=== PATIENT | male | born 1985 | race Caucasian/White ===

== ENCOUNTER 2021-09-03 08:20 | Emergency (ER) | payer MEDICAID, SELFPAY ==
[~2021-09-03] VITALS: Ht 172.7 cm; Wt 85.7 kg
[2021-09-03 08:37] VITALS: BP_SYST 173
[2021-09-03] MEDS ORDERED: NALOXONE HCL 2 MG/2 ML SYR IVP ONE (08:45)
[2021-09-03 09:05] LABS: BASOPHILS # (AUTO) 0.1 K/uL (0.0-0.2); EOSINOPHILS # (AUTO) 0.2 K/uL (0.0-0.4); EOSINOPHILS % (AUTO) 2.1 % (0.0-4.0); HEMATOCRIT 40.5 % (36-54); HEMOGLOBIN 14.1 g/dL (14.0-18.0); LYMPHOCYTES # (AUTO) 2.1 K/uL (1.0-5.5); LYMPHOCYTES % (AUTO) 24.3 % (20.5-51.5); MEAN CORPUSCULAR HEMOGLOBIN 31 pg (27-31); MEAN CORPUSCULAR HGB CONC 35 % (32-36); MEAN CORPUSCULAR VOLUME 88 fL (79.0-98.0); MONOCYTES # (AUTO) 0.8 K/uL (0.0-1.0); MONOCYTES % (AUTO) 9.4 % (1.7-9.3); NEUTROPHILS # (AUTO) 5.4 K/uL (1.8-7.7); NEUTROPHILS % (AUTO) 63.2 % (40.0-70.0); PLATELET COUNT (AUTO) 218 K/uL (130-430); WHITE BLOOD COUNT (AUTO) 8.6 K/uL (4.8-10.8)
[2021-09-03] MEDS ORDERED: ONDANSETRON HCL 4 MG/2 ML VIAL IVP ONE ×2 (09:15→10:45)
[2021-09-03 09:17] LABS: ANION GAP 10 (5-15); CALCIUM 9.6 mg/dL (8.4-11.0); CHLORIDE 104 mmol/L (98-107); CREATININE 1.13 mg/dL (0.55-1.30); GLUCOSE 196 mg/dL (70-99); POTASSIUM 3.9 mmol/L (3.5-5.1); SODIUM SERUM 143 mmol/L (136-145); UREA NITROGEN, BLOOD 23 mg/dL (8-21)
[2021-09-03 09:18] LABS: GFR AFRICAN AMERICAN 94 mL/min (>90)
[2021-09-03 09:31] LABS: ALANINE AMINOTRANSFERASE 45 U/L (12-78); ALBUMIN 3.8 g/dL (3.4-4.8); ASPARTATE AMINOTRANSFERASE 37 U/L (10-37); TOTAL BILIRUBIN 0.3 mg/dL (0.0-1.0)
[2021-09-03 09:32] LABS: ACETAMINOPHEN < 1 ug/mL (1-30)
[2021-09-03 09:33] LABS: ALCOHOL, BLOOD < 3 mg/dL (<10)
[2021-09-03 10:03] LABS: CKMB RELATIVE INDEX 1.4 (0.0-2.9); CREATINE KINASE MB 9.6 ng/mL (0-3.6)
[2021-09-03 10:44] LABS: PROTHROMBIN TIME 10.2 SECS (9.5-12.5)
[2021-09-03 11:05] LABS: BILIRUBIN,URINE NEGATIVE (NEGATIVE); COLOR,URINE YELLOW (YELLOW); GLUCOSE,URINE TRACE (NEGATIVE); KETONES,URINE NEGATIVE (NEGATIVE); LEUKOCYTE ESTERASE ,URINE NEGATIVE (NEGATIVE); NITRITE, URINE NEGATIVE (NEGATIVE); PH,URINE 7.5 (5.0-8.0); PROTEIN URINE NEGATIVE (NEGATIVE); UROBILINOGEN,URINE 0.2 (0.2-1.0)
[2021-09-03 11:21] LABS: BLOOD, URINE TRACE (NEGATIVE); CLARITY/URINE SLIGHTLY HAZY (CLEAR)
[2021-09-03 12:09] LABS: BARBITURATE, URINE NEGATIVE (NEG <=200); BENZODIAZEPINE, URINE NEGATIVE (NEG <=150); CANNABINOID, URINE POSITIVE (NEG <=50); COCAINE, URINE NEGATIVE (NEG <=150); METHAMPHETAMINES SCREEN,URINE POSITIVE (NEG <=500); OPIATE, URINE NEGATIVE (NEG <=100); PHENCYCLIDINE SCREEN,URINE NEGATIVE (NEG <=25); UR TRICYCLIC ANTIDEPRESSANTS NEGATIVE (NEG <=300); URINE AMPHETAMINE POSITIVE (NEG <=500); URINE METHADONE NEGATIVE (NEG <=200); URINE OXYCODONE SCREEN NEGATIVE (NEG <=100); URINE PROPOXYPHENE SCREEN NEGATIVE (NEG <=300)
[2021-09-03 12:13] LABS: RBC,URINE 0-3 /HPF (0-3); WBC,URINE 0-3 /HPF (0-3)
[2021-09-03 12:14] LABS: BACTERIA,URINE FEW /HPF (None Seen); URINE AMORPHOUS PHOSPHATES 2+ /HPF (None Seen)
[2021-09-03 16:45] VITALS: BP_SYST 165
== END 2021-09-03 16:45 | disposition home or self-care (01) ==
LOC: SED 08:20
DX: F19.10 Other psychoactive substance abuse, uncomplicated (principal); R53.1 Weakness; Z79.899 Other long term (current) drug therapy
CPT/HCPCS: 36415; 70450; 71045; 76376; 80053; 80307; 81000; 82140; 82550; 82553; 83605; 84484; 85025; 85610; 85730; 93005; 96374; 96375; 96376; 99285; G0480; J2310; J2405; G0481; G0482

== ENCOUNTER 2022-08-28 00:30 | Inpatient (IN) | payer MEDICAID, OTHER ==
[~2022-08-28] VITALS: Ht 172.7 cm; Wt 87.5 kg
--- NOTE | 2022-08-28 00:30 | NUR ---
Patient to ER bed 05 to gown for evaluation. Side rails up.
[2022-08-28 00:36] VITALS: BP_SYST 145
--- NOTE | 2022-08-28 00:39 | NUR ---
Patient brought by self complaining of foreign body in rectum. Patient states that he has a "sex toy in his anus". Patient reports its a 6 inch dildo that he placed himself tonight and "got stuck." Patient then reports that "he went to retrieve said foreign body with some tongs and thought he had obtained it and yanked on it with the tongs. He said he started to bleed profusely from the rectum." Patient reports standing is more comfortable. Denies any pain at this time.
[2022-08-28 01:29] LABS: BASOPHILS # (AUTO) 0.1 K/uL (0.0-0.2); EOSINOPHILS # (AUTO) 0.2 K/uL (0.0-0.4); EOSINOPHILS % (AUTO) 1.6 % (0.0-4.0); HEMATOCRIT 43.6 % (36-54); HEMOGLOBIN 15.1 g/dL (14.0-18.0); LYMPHOCYTES # (AUTO) 2.5 K/uL (1.0-5.5); LYMPHOCYTES % (AUTO) 21.8 % (20.5-51.5); MEAN CORPUSCULAR HEMOGLOBIN 31 pg (27-31); MEAN CORPUSCULAR HGB CONC 35 % (32-36); MEAN CORPUSCULAR VOLUME 88 fL (79.0-98.0); MONOCYTES # (AUTO) 1.2 K/uL (0.0-1.0); NEUTROPHILS # (AUTO) 7.6 K/uL (1.8-7.7); NEUTROPHILS % (AUTO) 65.6 % (40.0-70.0); PLATELET COUNT (AUTO) 260 K/uL (130-430); RED BLOOD CELL COUNT(AUTO) 4.95 MIL/uL (4.2-6.2); RED CELL DISTRIBUTION WIDTH 12.9 % (9.0-15.0); WHITE BLOOD COUNT (AUTO) 11.5 K/uL (4.8-10.8)
[2022-08-28 01:57] LABS: CALCIUM 9.9 mg/dL (8.4-11.0); CREATININE 1.01 mg/dL (0.55-1.30)
[2022-08-28 02:07] LABS: ALBUMIN 4.4 g/dL (3.4-4.8)
[2022-08-28] MEDS ORDERED: ALPRAZolam 0.25 MG TABLET PO ONE ×2 (02:15→03:30)
--- NOTE | 2022-08-28 03:33 | NUR ---
DR. MARROQUIN UNSUCCESSFUL WITH FOREIGN BODY REMOVAL. WILL REMEDICATE AND ATTEMPT AGAIN.
[2022-08-28] MEDS ORDERED: MORPHINE SULFATE 10 MG/ML VIAL ONE (04:06)
[2022-08-28] MEDS ORDERED: MORPHINE SULFATE 10 MG/ML VIAL IM ONE (04:15)
[2022-08-28] MEDS ORDERED: PIPERACILLIN/TAZO 3.375 GM in NS 50 ML IV ONE (05:00)
--- NOTE | 2022-08-28 05:05 | NUR ---
COVID-19 SWAB AND SENT TO LAB.
[2022-08-28] MEDS ORDERED: PIPERACILLIN/TAZOBACTAM 3.375 GM/VIAL (ZOSYN) IV ONE (05:16)
[2022-08-28] MEDS ORDERED: ONDANSETRON HCL 4 MG/2 ML VIAL IVP PRN ×2 (05:30→15:00)
--- NOTE | 2022-08-28 05:30 | NUR ---
Admit bed requested Patient will be admitted to care of . Admitted to MED SURG unit. Diagnosis RECTAL FOREIGN BODY Inpatient (Yes or No) YES Observation (Yes or No) NO Orientation concerns or request close to nursing station (Yes or No) NO Covid Status PENDING On vent or bipap NO Isolation requirements NO Needs a sitter NO From Home (Yes or if No enter name of facility) YES Requires Dialysis (Yes or No) NO Med Rec Completed (Yes of No) PENDING
[2022-08-28] MEDS ORDERED: PIPERACILLIN/TAZO 4.5 GM in NS 100 ML IV SCH (06:00)
[2022-08-28] MEDS: MORPHINE 4 MG INJ. 4 MG/ML VIAL IVP PRN (06:12)
[2022-08-28] MEDS: KCL 20 mEq in D5/0.45NS 1000mL 1,000 ML IV SCH (06:12)
--- NOTE | 2022-08-28 07:07 | NUR ---
REPORT GIVEN TO BERTHA HACKETT.
--- NOTE | 2022-08-28 07:27 | NUR ---
Pt resting at this time, VSS, respirations even and unlabored.
--- NOTE | 2022-08-28 07:55 | NUR ---
Patient will be admitted to care of Dr Schmitt . Admitted to Medsurg unit. Will go to room 100A Belongings list completed. Complete and up to date summary report printed. SBAR report to be given at bedside with opportunity for questions.
[2022-08-28 08:00] VITALS: BP_SYST 128
--- NOTE | 2022-08-28 08:00 | NUR ---
RECEIVED PT FROM E.RMikala WITH DIAGNOSIS OF RECTAL FOREIGN BODY, PT IS UNDER THE CARE OF DR GASTON. PT AND FAMILY EDUCATED ON THE USE OF CALL LIGHT , TV AND BED CONTROLS.
[2022-08-28 10:30] VITALS: BP_SYST 125
[2022-08-28] MEDS: PANTOPRAZOLE SODIUM 40 MG/VIAL (PROTONIX) IVP SCH (10:50)
[2022-08-28] MEDS ORDERED: NS IRRIG SOLN 1000 ML IR ONE (14:00)
[2022-08-28] MEDS ORDERED: fentaNYL CITRATE/PF 100 MCG/2 ML AMP IVP ONE (14:00)
[2022-08-28] MEDS ORDERED: LR 1,000 ML IV.SOLN IV ONE (14:00)
[2022-08-28] MEDS ORDERED: MIDAZOLAM HCL 5 MG/5 ML VIAL IVP ONE (14:00)
[2022-08-28] MEDS ORDERED: PROPOFOL 200MG/ 20ML VIAL (DIPRIVAN) IV ONE (14:00)
[2022-08-28] MEDS ORDERED: BUPIVACAINE /EPINEPHRINE/PF 0.25% 30 ML VIAL INJ ONE (14:00)
[2022-08-28] MEDS: PIPERACILLIN/TAZO 4.5 GM in NS 100 ML IV SCH ×2 (14:46→22:00)
[2022-08-28] MEDS ORDERED: METOCLOPRAMIDE HCL 10 MG/2 ML VIAL IVP PRN (15:00)
[2022-08-28] MEDS ORDERED: HYDROmorphone 2 MG/ML VIAL IVP PRN (15:00)
[2022-08-28] MEDS ORDERED: NALOXONE HCL 0.4 MG/ML AMP (NARCAN) IVP PRN ×2 (15:00)
[2022-08-28] MEDS ORDERED: HYDROmorphone 1 MG/ML INJ. CARTRIDGE IVP PRN ×2 (15:00)
[2022-08-28 16:00] VITALS: BP_SYST 101
--- NOTE | 2022-08-28 16:18 | NUR ---
1030: PATIENT ADMITTED FROM ER WITH FOREIGN BODY IN THE RECTUM, SCHEDULE FOR REMOVAL BY DR. Byron GASTON. PATIENT IS AWAKE, ALERT, ORIENTED X 4 TO NAME, PERSON, PLACE, AND TIME. RESPIRATION EVEN AND UNLABORED NO S/S OF ANY ACUTE DISTRESS NOTED. ABLE TO VERBALIZE NEEDS NO C/O ANY PAIN OR DISCOMFORT @ THIS TIME. ABDOMEN SOFT AND NON-DISTENDED, POSITIVE BOWEL SOUND X 4 NO N/V OR ABDOMINAL DISCOMFORT NOTED. SKIN WRM AND DRYU INTACT W/O ANY REDNESS OR EDEMA NOTE. 1400: LEFT THE UNIT FOR SURGERY PLANNED. 1600: BACK ON THE UNIT, DROWSY BUT AROUSABLE TO SPEECH. WILL CONTINUE TO MONITOR PATIENT UNTIL FULLY AWAKE. RECTAL DRESSING IN PLACE NO BLEEDING OR DISCHARGE NOTED.
[2022-08-28 16:48] VITALS: BP_SYST 101
[2022-08-29 00:44] VITALS: BP_SYST 114
[2022-08-29] MEDS: MORPHINE 4 MG INJ. 4 MG/ML VIAL IVP PRN (02:30)
[2022-08-29] MEDS: PIPERACILLIN/TAZO 4.5 GM in NS 100 ML IV SCH (05:31)
[2022-08-29] MEDS: KCL 20 mEq in D5/0.45NS 1000mL 1,000 ML IV SCH (06:30)
[2022-08-29 07:12] LABS: BASOPHILS # (AUTO) 0.1 K/uL (0.0-0.2); BASOPHILS % (AUTO) 0.5 % (0.0-2.0); EOSINOPHILS # (AUTO) 0.2 K/uL (0.0-0.4); EOSINOPHILS % (AUTO) 2.3 % (0.0-4.0); HEMATOCRIT 38.9 % (36-54); HEMOGLOBIN 13.3 g/dL (14.0-18.0); LYMPHOCYTES # (AUTO) 2.1 K/uL (1.0-5.5); LYMPHOCYTES % (AUTO) 20.2 % (20.5-51.5); MEAN CORPUSCULAR HEMOGLOBIN 30 pg (27-31); MEAN CORPUSCULAR HGB CONC 34 % (32-36); MEAN CORPUSCULAR VOLUME 88 fL (79.0-98.0); MONOCYTES # (AUTO) 0.7 K/uL (0.0-1.0); MONOCYTES % (AUTO) 7.1 % (1.7-9.3); NEUTROPHILS # (AUTO) 7.4 K/uL (1.8-7.7); NEUTROPHILS % (AUTO) 69.9 % (40.0-70.0); PLATELET COUNT (AUTO) 211 K/uL (130-430); RED BLOOD CELL COUNT(AUTO) 4.41 MIL/uL (4.2-6.2); RED CELL DISTRIBUTION WIDTH 12.7 % (9.0-15.0); WHITE BLOOD COUNT (AUTO) 10.5 K/uL (4.8-10.8)
[2022-08-29 07:56] LABS: CALCIUM 8.3 mg/dL (8.4-11.0); CREATININE 0.97 mg/dL (0.55-1.30)
[2022-08-29] MEDS: PANTOPRAZOLE SODIUM 40 MG/VIAL (PROTONIX) IVP SCH (09:00)
[2022-08-29 11:05] VITALS: BP_SYST 111
--- NOTE | 2022-08-29 12:48 | NUR ---
ATTENDING AND GEN SURGEON DR GASTON WAS CALLED RE: ORAL MEDICATION BEFORE LEAVING. SPOKE TO
[2022-08-29 13:15] VITALS: BP_SYST 102
[2022-08-29 15:25] VITALS: BP_SYST 124
== END 2022-08-29 13:45 | disposition home or self-care (01) | DRG 226 ==
LOC: SED 00:30 → SMU 05:21
PROVIDERS: ADMIT Surgery; ATTEND Surgery
PROC: 0DBQ7ZZ Excision of Anus, Via Natural or Artificial Opening (ICD-10-PCS; 2022-08-28)
PROC: 0DJDXZZ Inspection of Lower Intestinal Tract, External Approach (ICD-10-PCS; 2022-08-28)
PROC: 0DCP7ZZ Extirpation of Matter from Rectum, Via Natural or Artificial Opening (ICD-10-PCS; principal; 2022-08-28 14:00)
DX: T18.5XXA Foreign body in anus and rectum, initial encounter (principal); F17.210 Nicotine dependence, cigarettes, uncomplicated; I10 Essential (primary) hypertension; X58.XXXA Exposure to other specified factors, initial encounter; K21.9 Gastro-esophageal reflux disease without esophagitis; K62.0 Anal polyp; K63.5 Polyp of colon; Z20.822 Contact with and (suspected) exposure to COVID-19; Y93.89 Activity, other specified; Y92.89 Other specified places as the place of occurrence of the external cause; Y99.8 Other external cause status
CPT/HCPCS: 36415; 74018; 80048; 80053; 83605; 85025; 85610-TC; 85730-TC; 87040; 87081; 88300; 88305; 88341; 88342; 93005; 96361; 96365; 96372; 99285; C9113; J1170; J2250; J2270; J2405; J2543; J2704; J3010; J3490; J7120